=== PATIENT | female | born 1960 | race Caucasian/White ===

== ENCOUNTER → 2017-04-27 | Outpatient (CLI) | payer OTHER ==
--- NOTE | 2017-04-27 12:39 | KCIC ---
INDICATION: Severe left knee pain for 4 weeks with difficulty walking, no known injury. TECHNIQUE: 3 views of the left knee are submitted for review. No comparison is available. FINDINGS: There is no fracture or dislocation. There is no joint effusion or soft tissue swelling. There is minimal patellofemoral and medial compartment spurring. There are vascular calcifications. IMPRESSION: Minimal degenerative changes in the left knee. Electronically signed by: Teddy Busby MD (04/27/2017 12:36 PM) [id number]
== END | disposition home or self-care (01) ==
LOC: KCIC 11:15
PROVIDERS: ATTEND Nurse Practitioner Family
DX: M17.12 Unilateral primary osteoarthritis, left knee (principal); R26.2 Difficulty in walking, not elsewhere classified
CPT/HCPCS: 73562